=== PATIENT | female | born 1975 | race Two or more races ===

== ENCOUNTER 2018-03-16 09:35 | Emergency (ER) | payer OTHER ==
[~2018-03-16] VITALS: Ht 157.5 cm; Wt 54.4 kg
== END 2018-03-16 12:52 | disposition home or self-care (01) ==
LOC: ER 09:35
DX: S50.02XA Contusion of left elbow, initial encounter (principal); S50.12XA Contusion of left forearm, initial encounter; S40.012A Contusion of left shoulder, initial encounter; W18.39XA Other fall on same level, initial encounter; Y93.89 Activity, other specified; Y92.89 Other specified places as the place of occurrence of the external cause; Y99.8 Other external cause status